=== PATIENT | female | born 1995 | race African-American/Black ===

== ENCOUNTER 2020-12-11 12:01 | Emergency (ER) | payer OTHER, SELFPAY ==
[2020-12-11 12:32] VITALS: BP 119/63; PULSE 82; RESP 18; TEMP 36.8; O2SAT 100
--- NOTE | 2020-12-11 12:43 | ED.WOUNDLAC ---
HPI - Wound/Laceration General Chief Complaint: Wound/Laceration Stated Complaint: Infected tatoo Time Seen by Provider: 12/11/20 12:38 Source: patient and RN notes reviewed Mode of arrival: ambulatory Limitations: no limitations History of Present Illness HPI narrative: 25-year-old female presents concern for tattoo infection. Reports she got a tattoo on her left buttock 1 week ago. Reports several days later she noticed pain, purulent drainage. She denies any swelling, fluctuant areas. Denies fever, general malaise. Reports she has been putting Saran wrap over the wound. Related Data Home Medications Medication Instructions Recorded Confirmed nitrofurantoin monohyd/m-cryst 100 mg PO BID 12/11/20 12/11/20 valacyclovir 100 mg PO DIRECTED 12/11/20 12/11/20 Allergies Allergy/AdvReac Type Severity Reaction Status Date / Time aviles Allergy Severe throat Verified 12/11/20 12:14 closes up Review of Systems Review of Systems: Narrative: CONSTITUTIONAL: Denies malaise, chills, sweats, or fever. CARDIOVASCULAR: Denies chest pain, palpitations, or edema. RESPIRATORY: Denies cough or dyspnea. GASTROINTESTINAL: Denies nausea, vomiting SKIN: Reports painful, purulent tattoo MUSCULOSKELETAL: Denies myalgia. All systems reviewed & are unremarkable except as noted in HPI and below PMFSH Family History Family History (Updated 10/26/10 @ 14:52 by DOCTOR UNKNOWN) Other Family history of coronary artery disease Family history of malignant neoplasm Hypertension Social History Social History Smoking status: Never smoker Alcohol intake: never Comments At time of signature, agree with nursing past medical, surgical, social and family history. There is no relevant family history pertinent to the presenting complaint Exam Narrative: Exam Narrative: GENERAL: Well-appearing, well-nourished, and in no acute distress. HEAD: Normocephalic, atraumatic. EYES: PERRLA, conjunctivae clear ENT: Nares clear. Mucous membranes moist. NECK: Supple. CHEST: No respiratory distress. Speaks in full sentences. HEART: Regular rate and rhythm. SKIN: Warm, dry. Tattoo covering the entire left buttock, purulent drainage noted on the general area of the entire tattoo. Tender to touch. No induration, fluctuation, edema noted. NEURO: Alert and oriented x3. PSYCH: Normal mood and affect Course Course Emergency Course: Patient is aware of diagnosis, understands and agrees to treatment plan. Anticipatory guidance given. Patient agrees to follow-up as directed and is aware of reasons to seek care at the emergency department. Portions of this record may have been created with voice recognition software Vital Signs Vital signs: Vital Signs Temperature 98.2 F 12/11/20 12:32 Pulse Rate 82 12/11/20 12:32 Respiratory Rate 18 12/11/20 12:32 Blood Pressure 119/63 12/11/20 12:32 Pulse Oximetry 100 12/11/20 12:32 Temperature 98.2 F 12/11/20 12:32 Pulse Rate 82 12/11/20 12:32 Respiratory Rate 18 12/11/20 12:32 Blood Pressure 119/63 12/11/20 12:32 Pulse Oximetry 100 12/11/20 12:32 Reviewed. MDM - Wound/Laceration MDM Narrative Medical decision making narrative: No fluctuation, no drainage, no pain out of proportion. Vital signs normal. Pain manageable with outpatient basis Critical Care Time Critical Care Time Critical Care Time: No Discharge Plan Discharge Clinical Impression: Skin infection, Tattoo of skin Patient Disposition: Home, Self-Care Condition: Stable Instructions: Antibiotic Form, Wound Infection (ED) Additional Instructions: Gently wash your wound, let soap and water run over the wound, do not scrub. Pat dry, apply antibiotic ointment. Cover with an absorbent dressing. 12 hours later, reapply ointment and change bandage as necessary. Take antibiotic as directed. You may take Tylenol ibuprofen for pain. If you notice any swelling, spreading redness you
== END 2020-12-11 12:51 | disposition home or self-care (01) ==
PROVIDERS: Emergency Provider Nurse Practitioner
DX: L08.9 Local infection of the skin and subcutaneous tissue, unspecified (principal)
CPT/HCPCS: 99213; G0463